=== PATIENT | male | born 1950 | race Caucasian/White ===

== ENCOUNTER 2021-06-12 11:20 | Inpatient (IN) | payer MEDICARE, OTHER, MEDICAID ==
[~2021-06-12] VITALS: Ht 188 cm; Wt 66.7 kg
[~2021-06-12 11:20] MED LIST: CYMBALTA30 MG PO; DILANTIN100 MG PO; KLOR-CON 1010 MEQ PO; LOPRESSOR50 PO; NEURONTIN 300300 M1 PO; NORCO 5-325 TA1 EACH PO; OMEGA-31000 M1 PO; OMEPRAZOLE 20 M20 M1 PO; OXYBUTYNIN 5 MG5 M2 PO; PLAVIX 75 MG TA75 M1 PO; PRAVACHOL40 MG PO; VITAMIN D50000 UNIT PO
[2021-06-12 11:26] VITALS: BP 139/58
[2021-06-12] MEDS ORDERED: OXYBUTYNIN 5 MG5 M2 PO (11:40)
[2021-06-12] MEDS ORDERED: PRAVASTATIN SOD40 MG PO (11:41)
[2021-06-12] MEDS ORDERED: FLOMAX0.4 MG PO (11:41)
[2021-06-12] MEDS ORDERED: FINASTERIDE5 MG PO (11:42)
[2021-06-12 12:15] LABS: ABSOLUTE EOSINOPHILS 0.2 thou/uL (0.0-0.7); ABSOLUTE LYMPHOCYTES 1.3 thou/uL (0.8-5.3); ABSOLUTE MONOCYTES 0.5 thou/uL (0.0-1.2); ABSOLUTE NEUTROPHILS 7.3 thou/uL (1.6-8.1); BASOPHILS 0.4 %; EOSINOPHILS 2.2 %; HEMATOCRIT 40.5 % (42.0-52.0); HEMOGLOBIN 13.4 gm/dL (14.0-18.0); LYMPHOCYTES 13.8 %; MCH 31.6 pg (26.0-34.0); MCHC 33.1 g/dL (28.0-37.0); MCV 95.6 fL (80.0-100.0); MONOCYTES 5.1 %; MPV 6.8 fl. (7.2-11.1); NUCLEATED RBCS 0 /100WBC; PLATELET COUNT* 241 thou/uL (150-400); POLYS 78.5 %; RBC 4.24 mil/uL (4.50-6.00); RDW-CV 14.6 % (10.5-14.5); WBC 9.3 thou/uL (4.0-11.0)
[2021-06-12 12:24] LABS: CALCIUM 8.3 mg/dL (8.5-10.1); CREATININE 0.8 mg/dL (0.6-1.3); POTASSIUM 4.3 mmol/L (3.5-5.1)
[2021-06-12 12:37] LABS: ALBUMIN 3.3 g/dL (3.4-5.0); TOTAL BILIRUBIN 0.2 mg/dL (<0.1-1.0); TOTAL PROTEIN 6.7 g/dL (6.4-8.2)
--- NOTE | 2021-06-12 19:07 | EKG ---
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
[2021-06-12 19:28] VITALS: BP 118/52
[2021-06-13] VITALS (7 sets, daily range): BP systolic 100–119; BP diastolic 52–64
[2021-06-14 01:37] VITALS: BP 124/50
[2021-06-14 05:08] LABS: HEMATOCRIT 40.2 % (42.0-52.0); HEMOGLOBIN 13.4 gm/dL (14.0-18.0); MCH 31.3 pg (26.0-34.0); MCHC 33.3 g/dL (28.0-37.0); MCV 93.9 fL (80.0-100.0); MPV 6.6 fl. (7.2-11.1); RBC 4.28 mil/uL (4.50-6.00); RDW-CV 14.4 % (10.5-14.5); WBC 10.2 thou/uL (4.0-11.0)
[2021-06-14 05:57] VITALS: BP 128/58
[2021-06-14 06:03] LABS: ALBUMIN 3.1 g/dL (3.4-5.0); CREATININE 0.9 mg/dL (0.6-1.3); POTASSIUM 3.3 mmol/L (3.5-5.1); TOTAL BILIRUBIN 0.5 mg/dL (<0.1-1.0); TOTAL PROTEIN 6.4 g/dL (6.4-8.2)
[2021-06-14 08:00] VITALS: BP 144/69
--- NOTE | 2021-06-14 10:07 | CON ---
[address] [address] CONSULTATION Name: DARIA TRIPATHI JR Room: [address] IN .R.#: [id number] Admission: 06/12/21 Attend Phys: Frances Escamilla Discharge: Date of : 54 Report #: [id number] THIS REPORT FOR: cc: Imer Hyman MD,Rosita Campos MD, DO ~ DATE OF CONSULTATION: 06/12/2021 NEUROLOGY CONSULT HISTORY OF PRESENT ILLNESS: The patient is a 70-year-old male with a 10-year history of seizure disorder. Apparently, the seizures began after a stroke. His states that she has only known him for the past 5 years, so she is uncertain when the seizures began. However, she does know that the patient was taking Dilantin, which he usually takes at noon and at midnight. 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 She does know that when he saw his primary care provider and had a Dilantin level drawn, the appointment time was at 2 p.m., so he most likely took his medication before the level was drawn. The patient is postictal and cannot provide any history. PAST MEDICAL HISTORY: Stroke with right hemiparesis, hypertension, focal seizure disorder. PAST SURGICAL HISTORY: Cholecystectomy. MEDICATIONS: Plavix 75 mg daily, potassium 10 mEq daily, metoprolol 50 mg b.i.d., omeprazole 20 mg daily, Dilantin 200 mg b.i.d., duloxetine 60 mg daily, oxybutynin 5 mg b.i.d., pravastatin daily, tamsulosin 0.4 mg b.i.d., finasteride 5 mg daily. ALLERGIES: None. PHYSICAL EXAMINATION: VITAL SIGNS: Temperature 37.4, pulse rate 64, blood pressure 125/59, bedside pulse oximetry 94% on 2 liters. NEUROLOGIC: Cranial nerves 2-12 are grossly intact. It is difficult to determine if the patient has a facial droop as he is turned onto his right side. Motor exam demonstrates the patient able to move all 4 extremities, but again asymmetry is difficult to assess. The right plantar response is extensor, the left is flexor. Coordination and gait were not tested. LABORATORY DATA: Hematology: White blood cell count 9.3, hemoglobin 13.4, hematocrit 40.5, MCV 95.6, platelet count 261,000. Chemistry: Sodium 134, [facility] [address] [place] [address] CONSULTATION Name: DARIA TRIPATHI JR Room: [address] IN [facility]#: [id number] Admission: 06/12/21 Attend Phys: Frances Escamilla Discharge: Date of : 54 Report #: [id number] potassium 4.3, chloride 106, carbon dioxide 25, BUN 16, creatinine 0.8, GFR 96, glucose 106, calcium 8.3. Total bilirubin 0.2. AST 24, ALT 37, alkaline phosphatase 83. Creatine kinase 147. Total protein 6.7, albumin 3.3. Dilantin level 8.4. COVID negative. IMAGING: CT scan of the cervical spine is limited due to motion artifact. There is no gross evidence of acute cervical spine fracture or subluxation. CT scan of the head demonstrates no acute abnormalities. An old left MCA infarct is seen. 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 If the patient's Dilantin level was drawn after he took his medication at noon, then his level is going to be falsely elevated. I explained to his that in the future when he has a Dilantin level drawn it needs to be drawn before he takes his medication. At this point, I would put the patient back on 200 mg b.i.d. tomorrow. I would not increase the dose of Dilantin tonight as he just received a gram of Dilantin. It will be necessary to repeat a Dilantin level in approximately 1 week. Also, of note is that his states that although the level was high and she does not know how high it was, the patient seemed to have no side effects from that. The other thing to keep in mind is if the Dilantin level is just slightly high, for example 21 and the patient is asymptomatic, it may not be necessary to change the medication. I thank you for your kind referral of the patient. <ELECTRONICALLY SIGNED> By: Rosita Bronson DO 06/14/21 1007 1621 1958Rosita Bronson DO /nt
[2021-06-14] MEDS ORDERED: DILANTIN100 MG PO (13:08)
[2021-06-14 15:47] VITALS: BP 144/69
[2021-06-14 15:53] VITALS: BP 144/69
== END 2021-06-14 16:45 | disposition home health service (06) | DRG 101 ==
LOC: M.ERS 11:20 → M.TBA-ER 15:34 → M.2W 06-13 01:49 → M.TBA-ER 06-13 01:49 → M.2W 06-14 16:29 → M.TBA-ER 06-14 16:45
PROVIDERS: Emergency Medicine Emergency Medical Services; ADMIT Internal Medicine; ATTEND Internal Medicine
DX: G40.89 Other seizures (principal); I69.351 Hemiplegia and hemiparesis following cerebral infarction affecting right dominant side; Z68.1 Body mass index [BMI] 19.9 or less, adult; E44.1 Mild protein-calorie malnutrition; Z91.14 Patient's other noncompliance with medication regimen; Z20.822 Contact with and (suspected) exposure to COVID-19; E88.09 Other disorders of plasma-protein metabolism, not elsewhere classified; Z90.49 Acquired absence of other specified parts of digestive tract; I10 Essential (primary) hypertension; Z82.49 Family history of ischemic heart disease and other diseases of the circulatory system; E86.0 Dehydration